=== PATIENT | female | born 1960 | race African-American/Black ===

== ENCOUNTER 2022-03-31 20:16 | Emergency (ER) | payer OTHER, SELFPAY ==
[2022-03-31 20:19] VITALS: BMI 36.1
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
[2022-03-31 20:23] VITALS: BP 183/90; PULSE 71; RESP 17; TEMP 36.8; O2SAT 96
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
--- NOTE | 2022-03-31 22:45 | PC.NURSE ---
Patient eloped/left AMA without signing the form at this time, GCS 15, patient stated she is tired of waiting to be treated, patient walked out of department with a steady gate with her friend.
== END 2022-03-31 22:45 | disposition left against medical advice (07) ==
PROVIDERS: Emergency Provider Emergency Medicine
DX: S13.4XXA Sprain of ligaments of cervical spine, initial encounter (principal); Z53.21 Procedure and treatment not carried out due to patient leaving prior to being seen by health care provider; V49.60XA Unspecified car occupant injured in collision with unspecified motor vehicles in traffic accident, initial encounter
CPT/HCPCS: 73030; 99283

== ENCOUNTER 2023-11-19 00:05 | Emergency (ER) | payer SELFPAY ==
[2023-11-19 00:09] VITALS: BP 210/75; PULSE 68; RESP 24; TEMP 36.4; O2SAT 100
--- NOTE | 2023-11-19 00:19 | CTR_ITS ---
PROCEDURE INFORMATION: Exam: CT Abdomen And Pelvis Without Contrast Exam date and time: 11/19/2023 12:43 AM Age: 63 years old Clinical indication: Nausea and vomiting; Abdominal pain; Patient HX: C/O left flank pain with n/v. ; Additional info: L flank pain TECHNIQUE: Imaging protocol: Computed tomography of the abdomen and pelvis without contrast. Radiation optimization: All CT scans at this facility use at least one of these dose optimization techniques: automated exposure control; mA and/or kV adjustment per patient size (includes targeted exams where dose is matched to clinical indication); or iterative reconstruction. COMPARISON: No relevant prior studies available. RADIATION DOSE METRICS: Total DLP (mGy-cm): 1700.27 FINDINGS: Lungs: The lung bases are clear. Heart: Heart size is within normal limits. There is no pericardial effusion or pericardial thickening. Liver: The liver is normal. No hepatic masses are identified. Gallbladder and biliary ducts: Questionable tiny gallstones in the gallbladder. No gallbladder wall thickening or pericholecystic inflammatory change. Pancreas: The pancreas is normal. Spleen: The spleen is normal. Adrenal glands: The adrenal glands are normal. Kidneys and ureters: No renal calcifications. No hydronephrosis on the right. 5 mm proximal left ureteral calcification causing [id number] left hydroureteronephrosis and minimal left perinephric changes. Stomach and bowel: Moderate colonic diverticulosis without diverticulitis. There is no large or small bowel obstruction. There is no evidence of bowel wall thickening. Appendix: A normal appendix is identified. Intraperitoneal space: No inflammatory changes are identified. There is no free fluid or fluid collection seen. There is no pneumoperitoneum. Vasculature: Atherosclerotic calcifications of the aorta are present. No aneurysm is identified. Lymph nodes: No enlarged lymph nodes are identified. Urinary bladder: The bladder is unremarkable. Reproductive: The uterus is present. Bones/joints: No acute osseous abnormalities are seen. Soft tissues: Tiny periumbilical hernia containing only fat. Moderate bilateral inguinal hernias containing only fat. The soft tissues are otherwise within normal limits. CT/CT kidney stone [id number] IMPRESSION: 1. 5 mm proximal left ureteral calcification causing [id number] left hydroureteronephrosis and minimal left perinephric changes. 2. Other nonemergent findings above.
--- NOTE | 2023-11-19 00:23 | ED_ITS ---
HPI - Abdominal Pain 2 General: Chief Complaint: Abdominal Pain Stated Complaint: sharp pain left side nausea Time Seen by Provider: 11/19/23 00:15 Source: patient Mode of arrival: ambulatory Limitations: no limitations History of Present Illness: 63-year-old female states she been havin g left-sided abdominal and flank pain that worsened tonight she states it has been severe the last 2 hours rates her pain a 9-10 she had nausea vomiting with the pain. Denies any worsening improving factors denies any dysuria denies any chest pain. Associated Symptoms: Reports nausea and vomiting; Denies chills, diarrhea, dysuria and fever(s) Review of Systems 2 Const: Denies: fever(s), chills, body aches or change in appetite ENMT: Denies: throat pain or dental pain Card: Denies: chest pain Resp: Denies: dyspnea GI: Reports: abdominal pain, nausea and vomiting; Denies: diarrhea : Reports: flank pain; Denies: dysuria Musc: Denies: neck pain or back pain Skin/Breast: Denies: rash Neuro: Denies: headache(s) Physical Exam 2 Const: COMMON NORMALS: no acute distress and patient oriented x3 HENMT: COMMON NORMALS: normocephalic and atraumatic HEAD & SCALP: n ormocephalic and atraumatic Eye: COMMON NORMALS: conjunctivae normal CONJUNCTIVA: Yes conjunctivae normal Neck/C-Spine: COMMON NORMALS: full ROM and supple Chest: COMMONS NORMALS: normal inspection of the chest and normal palpation of entire chest wall Resp: COMMON NORMALS: normal respiratory effort, No retractions, No use of accessory muscles and clear to auscultation bilaterally AUSCULTATION: clear to auscultation bilaterally Cardio: COMMON NORMALS: regular rate, regular rhythm and No murmurs present (Cardio) RATE: regular rate RHYTHM: regular rhythm GI: COMMON NORMALS: Normal to inspection, nondistended, normoactive bowel sounds present, Soft to palpation, non-tender and no masses PALPATION: Yes Soft to palpation Extremity: COMMON NORMALS: normal to inspection and full ROM Neuro: COMMON NORMALS: patient oriented x3, moves all extremities and no focal motor deficits Psych: COMMON NORMALS: mental status grossly normal, Normal thought process present and cooperative THOUGHT PROCESS: Normal thought process present Skin: COMMON NORMALS: no rashes or lesions noted and no wounds GENERAL SKIN EXAM: no rashes or lesions noted Course 2 Vital Signs: Vital signs: Vital Signs Temperature 97.6 F 11/19/23 00:09 Pulse Rate 69 11/19/23 02:30 Respiratory Rate 16 11/19/23 02:30 Blood Pressure 145/76 11/19/23 02:30 Pulse Oximetry 98 11/19/23 02:30 MDM - Abdominal Pain Medical Decision Making Patient presents right flank pain CT shows a kidney stone likely causing her pain pain and nausea is improved here we will prescribe her pain meds for home she is follow-up with PCP and return if worsening she understands agrees to plan Medical Records I reviewed the patient's medical records. Lab Data I reviewed the patient's lab results. 11/19/23 00:33 11/19/23 01:01 Labs/Radiology: Radiology Impressions Abdomen/Pelvis CT 11/19/23 00:19 IMPRESSION: 1. 5 mm proximal left ureteral calcification causing [id number] left hydroureteronephrosis and minimal left perinephric changes. 2. Other nonemergent findings above. Laboratory Results WBC 11.72 10^3/uL (3.29-11.43) H 11/19/23 00:33 RBC 4.75 10^6/uL (3.85-5.65) 11/19/23 00:33 Hgb 14.20 g/dL (11.27-16.99) 11/19/23 00:33 Hct 43.1 % (36-47) 11/19/23 00:33 MCV 90.7 fl (85-98) 11/19/23 00:33 MCH 29.9 pg (27-33) 11/19/23 00:33 MCHC 32.9 g/dL (30-55) 11/19/23 00:33 RDW 12.1 % (12.1-15.1) 11/19/23 00:33 Plt Count 257 10^3/cmm (157-399) 11/19/23 00:33 MPV 12.8 fL (7.4-10.4) H 11/19/23 00:33 Neut % (Auto) 48.5 % 11/19/23 00:33 Lymph % (Auto) 43.7 % 11/19/23 00:33 [place] % (Auto) 6.0 % 11/19/23 00:33 Eos % (Auto) 1.0 % 11/19/23 00:33 Baso % (Auto) 0.5 % 11/19/23 00:33 Neut # (Auto) 5.69 10^3/uL (1.8-7.7) 11/19/23 00:33 Lymph # (Auto) 5.1 10^3/uL (0.8-4.8) H 11/19/23 00:33 [place] # (Auto) 0.7 10^3/uL (0.2-0.9) 11/19/23 00:33 Eos # (Auto) 0.1 10^3/uL (0.0-0.8) 11/19/23 00:33 Baso # (Auto) 0.1 10^3/uL (0.0-0.1) 11/19/23 00:33 Nucleated RBC % (auto) 0 % 11/19/23 00:33 Nucleated RBCs # 0.0 /100WBC 11/19/23 00:33 Sodium 141 mmol/L (136-145) 11/19/23 01:01 Potassium 3.1 mmol/L (3.5-5.1) L 11/19/23 01:01 Chloride 103 mmol/L (98-107) 11/19/23 01:01 Carbon Dioxide 20 mmol/L (22-29) L 11/19/23 01:01 Anion Gap 21.1 (5-19) H 11/19/23 01:01 BUN 13 mg/dL (8-23) 11/19/23 01:01 Creatinine 0.8 mg/dL (0.5-0.9) 11/19/23 01:01 GFR Calculation 87.4 mL/min (90-130) L 11/19/23 01:01 Glucose 165 mg/dL (65-115) H 11/19/23 01:01 Calculated Osmolality 296 mOsm/kg (285-295) H 11/19/23 01:01 Calcium 9.9 mg/dL (8.5-10.5) 11/19/23 01:01 Total Bilirubin 0.3 mg/dL (0.15-1.2) 11/19/23 01:01 AST 26 U/L (0-32) 11/19/23 01:01 ALT 22 U/L (0-33) 11/19/23 01:01 Alkaline Phosphatase 73 U/L (35-105) 11/19/23 01:01 Total Protein 7.5 g/dL (6.6-8.7) 11/19/23 01:01 Albumin 4.1 g/dL (3.5-5.2) 11/19/23 01:01 Globulin 3.4 g/dL (1.3-4.6) 11/19/23 01:01 Lipase 42 U/L (13-60) 11/19/23 01:01 Urine Color Yellow (Yellow) 11/19/23 01:12 Urine Appearance Cloudy (CLEAR) A 11/19/23 01:12 Urine pH 8 (5-7) H 11/19/23 01:12 Ur Specific [place] 1.015 (1.005-1.030) 11/19/23 01:12 Urine Protein Neg (Negative) 11/19/23 01:12 Urine Glucose (UA) Norm (Normal) 11/19/23 01:12 Urine Ketones 1+ (Negative) H 11/19/23 01:12 Urine Blood 3+ (Negative) H 11/19/23 01:12 Urine Nitrate Negative (Negative) 11/19/23 01:12 Urine Bilirubin Neg (Negative) 11/19/23 01:12 Prot Sulfosalicylic Acd (Negative) 11/19/23 01:12 Urine Urobilinogen Neg mg/dL (Negative) 11/19/23 01:12 Ur Leukocyte Esterase Negative (Negative) 11/19/23 01:12 Urine RBC 15-25 /hpf (0-2) H 11/19/23 01:12 Urine WBC 0-4 /hpf (0-5) H 11/19/23 01:12 Ur Squamous Epith Cells 5-10 /hpf (0-5) H 11/19/23 01:12 Amorphous Sediment Trace /hpf 11/19/23 01:12 Urine Bacteria 1+ /hpf (NONE) H 11/19/23 01:12 Urine Mucus Trace /hpf 11/19/23 01:12 All radiology interpretation(s) finalized by discharge EKG Data EKG 1: I personally reviewed and interpreted this EKG as follows: EKG interpretation date: 11/19/23 EKG interpretation time: 00:24 Interpretation: nsr hr [address] or t wave abnormalities qrs 95 qtc 379 Discharge Plan Discharge Patient Disposition: Home Clinical Impression: Kidney stone Condition: Stable Prescriptions: New hydrocodone-acetaminophen 5-325 mg tablet 1 tab PO Q6H PRN (Reason: pain) Qty: 14 0RF ondansetron 4 mg tablet,disintegrating 4 mg PO Q6H PRN (Reason: nausea and vomiting) Qty: 14 0RF Discharge Orders: Discharge ED (Routine); Ordered 11/19/23 Ordered By: Rex Palma Discharge Diet: Advance as tolerated Discharge Activity: Resume usual activity Patient Instructions: Kidney Stones (ED), Opioid Safety Coding Level of Care Code ED [employer] for Keyla Sheridan
--- NOTE | 2023-11-19 00:24 | ECG_ITS ---
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 Measurements Intervals [place] Rate: 65 P: 71 CA: 184 QRS: 69 QRSD: 95 T: 41 QT: 368 QTc: 384 Interpretive Statements SINUS RHYTHM NONSPECIFIC T-WAVE ABNORMALITY No previous ECG available for comparison Electronically Signed On 11-19-2023 19:06:54 CDT by Fabian Buckner M.D. [id number]
[2023-11-19] MEDS: ondansetron 2 mg/ML SDV 2 mL 4 MG IVP ×2 (00:36→01:56)
[2023-11-19] MEDS: sodium chloride 0.9% 1,000 ML 999 ML IV (00:36)
[2023-11-19] MEDS: HYDROmorphone 1 mg/mL INJ 1 mL IVP (00:36)
[2023-11-19 00:38] VITALS: BP 209/92; PULSE 68; RESP 20; O2SAT 100
[2023-11-19 00:39] LABS: Basophils # 0.1 10^3/uL (0.0-0.1); Basophils % 0.5 %; Eosinophils # 0.1 10^3/uL (0.0-0.8); Hematocrit 43.1 % (36-47); Lymphocytes # 5.1 10^3/uL (0.8-4.8); Lymphocytes % 43.7 %; Mean Corpuscular HGB Conc 32.9 g/dL (30-55); Mean Corpuscular Hemoglobin 29.9 pg (27-33); Mean Corpuscular Volume 90.7 fl (85-98); Mean Platelet Volume 12.8 fL (7.4-10.4); Monocytes # 0.7 10^3/uL (0.2-0.9); Neutrophils # 5.69 10^3/uL (1.8-7.7); Neutrophils % 48.5 %; Nucleated Red Blood Cells % 0 %; Platelet Count 257 10^3/cmm (157-399); Red Blood Count 4.75 10^6/uL (3.85-5.65); Red Cell Distribution Width 12.1 % (12.1-15.1); White Blood Count 11.72 10^3/uL (3.29-11.43)
[2023-11-19] MEDS: ketorolac 30 mg/mL INJ 15 MG IVP (01:00)
[2023-11-19 01:01] VITALS: BP 216/119; PULSE 55; RESP 16; O2SAT 98
[2023-11-19 01:25] LABS: Add Urine Microscopic? YES; Bacteria Urine 1+ /hpf; Bilirubin Urine Neg (Negative); Blood Urine 3+ (Negative); Glucose Urine UA Norm (Normal); Ketones Urine 1+ (Negative); Leukocyte Esterase Urine Negative (Negative); Nitrate Urine Negative (Negative); Protein Urine Neg (Negative); RBC Urine 15-25 /hpf (0-2); Specific Gravity, Urine 1.015 (1.005-1.030); Urine Appearance Cloudy (CLEAR); Urine Color Yellow (Yellow); Urobilinogen Urine Neg (Negative); WBC Urine 0-4 /hpf (0-5); pH Urine 8 (5-7)
[2023-11-19] MEDS: hyDRALAzine 20 mg/mL INJ 1 mL 10 MG IVP (01:25)
[2023-11-19 01:26] LABS: Add Urine Culture? Yes; Amorphous Sediment Urine TRACE /hpf; Mucus Urine TRACE /hpf
[2023-11-19 01:28] LABS: Alanine Aminotransferase 22 U/L (0-33); Albumin Level 4.1 g/dL (3.5-5.2); Alkaline Phosphatase 73 U/L (35-105); Anion Gap 21.1 (5-19); Aspartate Amino Transferase 26 U/L (0-32); Blood Urea Nitrogen 13 mg/dL (8-23); Calcium 9.9 mg/dL (8.5-10.5); Carbon Dioxide 20 mmol/L (22-29); Chloride 103 mmol/L (98-107); Creatinine Clr Calc Pharmacy 64.1931; Globulin 3.4 g/dL (1.3-4.6); Glomerular Filtration Rate 87.4 mL/min (90-130); Glucose 165 mg/dL (65-115); Lipase 42 U/L (13-60); Osmolality Calculated 296 mOsm/kg (285-295); Potassium 3.1 mmol/L (3.5-5.1); Sodium 141 mmol/L (136-145); Total Bilirubin 0.3 mg/dL (0.15-1.2); Total Protein 7.5 g/dL (6.6-8.7)
[2023-11-19 02:03] VITALS: BP 176/77; PULSE 69; RESP 16; O2SAT 97
[2023-11-19] MEDS: LORazepam 2 mg/mL INJ 10 mL MDV 0.5 MG IVP (02:22)
[2023-11-19 02:30] VITALS: BP 145/76; PULSE 69; RESP 16; O2SAT 98
--- NOTE | 2023-11-24 09:40 | DCPLANNER ---
sent referral packet to [facility]
== END 2023-11-19 02:59 | disposition home or self-care (01) ==
PROVIDERS: Emergency Provider Emergency Medicine
DX: N13.2 Hydronephrosis with renal and ureteral calculous obstruction (principal)
CPT/HCPCS: 74176; 80053; 81001; 83690; 85025; 87086; 93005; 96361; 96374; 96375; 96376; 99285; J0360; J1170; J1885; J2060; J2405; J7030

== ENCOUNTER → 2024-01-11 13:30 | Outpatient (BNVA) | payer MEDICARE, SELFPAY | PROVIDERS: Visit Provider Specialist | DX: M19.012 Primary osteoarthritis, left shoulder (principal) | CPT/HCPCS: 99203; 99204 ==

== ENCOUNTER 2024-01-12 15:05 | Outpatient (CLI) | payer MEDICARE, SELFPAY ==
[2024-01-12 16:42] LABS: Cortisol Random 8.25 ug/dL (2.47-19.5)
== END 2024-01-12 15:06 | disposition home or self-care (01) ==
LOC: LAB 15:08
PROVIDERS: PCP Nurse Practitioner Family; Visit Provider Family Medicine
DX: I10 Essential (primary) hypertension (principal); D11.9 Benign neoplasm of major salivary gland, unspecified; E11.9 Type 2 diabetes mellitus without complications; E66.9 Obesity, unspecified
CPT/HCPCS: 36415; 82533

== ENCOUNTER 2024-01-18 13:38 | Outpatient (CLI) | payer MEDICARE, SELFPAY ==
--- NOTE | 2024-01-18 13:47 | XR_ITS ---
WS: [id number] SCREENING DEXA SCAN [employer] CLINICAL INFORMATION: TYPE 2 DIABETES COMPARISON: None. FINDINGS: The L1-L4 bone mineral density measures 1.118 g/cm2. This corresponds to a T score score of -0.5 and Z score of 0.7. Left femoral neck bone mineral density measures 0.948 g/cm2. This corresponds to a T score of -0.5 an d Z score of 0.5. Right femoral neck bone mineral density measures 1.002 g/cm2. This corresponds to a T score 0.0of and Z score of 0.9. Mean femoral neck bone mineral density measures 0.975 g/cm2. This corresponds to a T score of -0.3 an d Z score of 0.7. XR/XR DEXA axial skeleton* [id number] IMPRESSION: Normal bone mineralization. Patient's FRAX calculated 10 year probability for major osteoporotic fracture i s 4.4% and osteoporotic hip fracture is 0.4%.
== END 2024-01-18 13:39 | disposition home or self-care (01) ==
PROVIDERS: PCP Nurse Practitioner Family; Visit Provider Nurse Practitioner Family
DX: Z13.820 Encounter for screening for osteoporosis (principal); M81.0 Age-related osteoporosis without current pathological fracture
CPT/HCPCS: 77080

== ENCOUNTER 2024-01-22 06:00 | Outpatient (RCR) | payer MEDICARE, SELFPAY | END 2024-02-20 23:59 | disposition home or self-care (01) | LOC: TPT 06:00 | PROVIDERS: PCP Nurse Practitioner Family; Visit Provider Podiatrist Foot & Ankle Surgery | DX: M72.2 Plantar fascial fibromatosis (principal) | CPT/HCPCS: 97035; 97110; 97140; 97162 ==

== ENCOUNTER 2024-02-01 14:01 | Outpatient (CLI) | payer MEDICARE, SELFPAY | END 2024-02-01 14:02 | disposition home or self-care (01) | LOC: SPT 14:04 | PROVIDERS: PCP Nurse Practitioner Family; Visit Provider Podiatrist Foot & Ankle Surgery | DX: M72.2 Plantar fascial fibromatosis (principal); M19.072 Primary osteoarthritis, left ankle and foot; M21.42 Flat foot [pes planus] (acquired), left foot; M76.72 Peroneal tendinitis, left leg | CPT/HCPCS: 99213; L4397 ==

== ENCOUNTER 2024-02-21 06:00 | Outpatient (RCR) | payer MEDICARE, SELFPAY | END 2024-03-22 23:59 | disposition home or self-care (01) | LOC: TPT 06:00 | PROVIDERS: PCP Nurse Practitioner Family; Visit Provider Podiatrist Foot & Ankle Surgery | DX: M72.2 Plantar fascial fibromatosis (principal) | CPT/HCPCS: 97035; 97110; 97140; 97164 ==

== ENCOUNTER → 2024-02-23 09:33 | Outpatient (BNVA) | payer MEDICARE, SELFPAY | PROVIDERS: PCP Nurse Practitioner Family; Visit Provider Surgery | DX: G47.30 Sleep apnea, unspecified (principal); Z12.11 Encounter for screening for malignant neoplasm of colon | CPT/HCPCS: 99204 ==

== ENCOUNTER → 2024-02-29 13:10 | Outpatient (BNVA) | payer MEDICARE, SELFPAY | PROVIDERS: PCP Nurse Practitioner Family; Visit Provider Podiatrist Foot & Ankle Surgery | DX: M72.2 Plantar fascial fibromatosis (principal) | CPT/HCPCS: 99213 ==

== ENCOUNTER 2024-03-09 11:36 | Outpatient (CLI) | payer MEDICARE, SELFPAY ==
--- NOTE | 2024-03-09 11:45 | MR_ITS ---
WS: [id number] MRI LEFT SHOULDER NONCONTRAST TECHNIQUE: Sagittal T2, coronal T1, T2 and proton density imaging. Axial gradient PDE imaging. CLINICAL INFORMATION: left shoulder pain COMPARISON: None. FINDINGS: Advanced degenerative arthritis AC joint with loss of the subacromial space. Subacromial spurring. Amaya bchondral cystic change involving the greater tuberosity. High-grade complete tear of the supraspinat us with retraction to the glenohumeral joint. Tendinopathy with intrasubstance tear of the distal inf raspinatus tendon. Teres minor appears intact. Tendinopathy with intrasubstance tears involving the distal subscapularis tendon which appears intact . Biceps tendon is absent from the bicipital groove proximally likely chronically torn. Intra-articul ar biceps tendon appears intact. Advanced degenerative narrowing of the glenohumeral articulation with hypertrophic changes. Degenerat latha fraying of the glenoid labrum. MR/MR shoulder LT wo con* [id number] IMPRESSION: 1. Advanced degenerative arthritis AC joint with complete loss of the subacrom ial space. Subacromial spurring. 2. High-grade tear of the supraspinatus with retraction nearly to the glenohum eral joint. 3. High-grade partial tear involves the distal infraspinatus with chronic thin elaine and tendinopathy. 4. Tendinopathy with partial intrasubstance tears involving the subscapularis which appears intact distally. 5. Biceps tendon is absent from the bicipital groove likely chronically torn. 6. Advanced degenerative narrowing at the glenohumeral articulation. 7. Subchondral cystic change along the greater tuberosity.
== END 2024-03-09 11:37 | disposition home or self-care (01) ==
PROVIDERS: PCP Nurse Practitioner Family; Visit Provider Specialist
DX: M19.012 Primary osteoarthritis, left shoulder (principal); M75.122 Complete rotator cuff tear or rupture of left shoulder, not specified as traumatic; M75.92 Shoulder lesion, unspecified, left shoulder; M85.412 Solitary bone cyst, left shoulder
CPT/HCPCS: 73221

== ENCOUNTER 2024-03-14 09:03 | Day surgery (SDC) | payer MEDICARE, SELFPAY ==
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
[2024-03-14 09:21] VITALS: BP 199/98; PULSE 66; RESP 18; TEMP 36.2; O2SAT 97
[2024-03-14 09:22] VITALS: BMI 32.2
[2024-03-14] MEDS: sodium chloride 0.9% 1,000 ML 30 ML IV (09:30)
[2024-03-14 09:38] LABS: Glucose Point of Care 136 mg/dL (70-110)
--- NOTE | 2024-03-14 09:50 | W.PM.OPSUD ---
Surgery/Procedure H&P Update DATE OF PROCEDURE: March 14, 2024 DATE H&P PERFORMED: 02/23/24 H&P UPDATE INFORMATION: I have reviewed H&P completed within last 30 days, I have examined patient prior to procedure and No changes to prior documentation PREOP DIAGNOSIS: screening PLANNED PROCEDURE: Operation Date: 03/14/24 10:00 Proposed Procedures p Colonoscopy 35310, G0105, Z12.11(Not Applicable) - Giovani Plascencia DO
[2024-03-14 10:03] VITALS: BP 126/62; PULSE 71; RESP 14; TEMP 36.7; O2SAT 97
[2024-03-14 10:10] VITALS: BP 131/74; PULSE 74; RESP 18; O2SAT 98
[2024-03-14 10:20] VITALS: BP 132/64; PULSE 71; RESP 18; O2SAT 100
--- NOTE | 2024-03-14 10:40 | ANE.PACU2 ---
Inpatient post-anesthesia follow up: Airway intact: Yes Vital signs: Temperature 98.1 F Pulse Rate 71 Respiratory Rate 18 Blood Pressure 132/64 Pulse Oximetry 100 Oxygen Delivery Me thod Room Air Oxygen Flow Rate Fraction of Inspir ed Oxygen Hydration adequate: Yes Nausea and vomiting: No Pain level: 1 Mental status: Baseline
== END 2024-03-14 10:41 | disposition home or self-care (01) ==
PROVIDERS: PCP Nurse Practitioner Family; Visit Provider Surgery
PROC: 0DJD8ZZ Inspection of Lower Intestinal Tract, Via Natural or Artificial Opening Endoscopic (ICD-10-PCS; CPT 45378; principal; 2024-03-14 10:00)
DX: Z12.11 Encounter for screening for malignant neoplasm of colon (principal); K57.30 Diverticulosis of large intestine without perforation or abscess without bleeding; G47.30 Sleep apnea, unspecified; I10 Essential (primary) hypertension; E11.9 Type 2 diabetes mellitus without complications; E78.5 Hyperlipidemia, unspecified; Z79.4 Long term (current) use of insulin
CPT/HCPCS: 36416; 82962; G0121; J0360; J2704; J7030

== ENCOUNTER 2024-03-23 06:00 | Outpatient (RCR) | payer MEDICARE, SELFPAY | END 2024-04-21 23:59 | disposition home or self-care (01) | LOC: TPT 06:00 | PROVIDERS: PCP Nurse Practitioner Family; Visit Provider Podiatrist Foot & Ankle Surgery | DX: M72.2 Plantar fascial fibromatosis (principal) | CPT/HCPCS: 97035; 97110; 97140 ==

== ENCOUNTER 2024-04-22 06:00 | Outpatient (RCR) | payer MEDICARE, SELFPAY | END 2024-05-07 23:59 | disposition home or self-care (01) | LOC: TPT 06:00 | PROVIDERS: PCP Nurse Practitioner Family; Visit Provider Podiatrist Foot & Ankle Surgery | DX: M72.2 Plantar fascial fibromatosis (principal) | CPT/HCPCS: 97164 ==

== ENCOUNTER → 2024-05-01 10:06 | Outpatient (BNVA) | payer MEDICARE, SELFPAY | PROVIDERS: PCP Nurse Practitioner Family; Visit Provider Podiatrist Foot & Ankle Surgery | DX: M72.2 Plantar fascial fibromatosis (principal) | CPT/HCPCS: 99213 ==

== ENCOUNTER 2025-03-13 13:07 | Outpatient (CLI) | payer MEDICARE, SELFPAY | END 2025-03-13 13:08 | disposition home or self-care (01) | LOC: SLEEP 13:09 | PROVIDERS: PCP Nurse Practitioner Family; Referring Provider Family Medicine; Visit Provider Internal Medicine Pulmonary Disease | DX: G47.33 Obstructive sleep apnea (adult) (pediatric) (principal) | CPT/HCPCS: G0399 ==